=== PATIENT | male | born 2000 | race Caucasian/White ===

== ENCOUNTER 2024-05-12 17:36 | Emergency (ER) | payer MEDICAID ==
[~2024-05-12] VITALS: Ht 182.9 cm; Wt 72.7 kg
[2024-05-12] MEDS: LIDOcaine 1% W/epiNEPHrine 1:100,000 20ml vial SQ ONE (18:54)
[2024-05-12 19:13] LABS: BASOPHILS % (AUTO) 0.2 % (0-1); EOSINOPHILS % (AUTO) 0.1 % (0-6); HEMATOCRIT 46.1 % (42.0-52.0); HEMOGLOBIN 16.2 g/dl (14.0-17.9); LYMPHOCYTES # (AUTO) 1.7 X10'3 (1.1-4.8); LYMPHOCYTES % (AUTO) 12.5 % (21-51); MEAN CORPUSCULAR HGB CONC 35.2 g/dL (33.0-36.5); MEAN CORPUSCULAR VOLUME 88.1 FL (78-98); MONOCYTES % (AUTO) 7.3 % (2-12); NEUTROPHILS # (AUTO) 10.8 X10'3 (1.8-7.7); NEUTROPHILS % (AUTO) 79.9 % (42-75); PLATELET COUNT 287 X10'3 (140-440); RED BLOOD COUNT 5.23 X10'6 (4.70-6.10); RED CELL DISTRIBUTION WIDTH 13.6 % (11.5-14.5); WHITE BLOOD COUNT 13.5 X10'3 (4.5-11.0)
[2024-05-12 19:26] LABS: ANION GAP 15 (8-16); BLOOD UREA NITROGEN 7 MG/DL (7-18); BUN/CREATININE RATIO 9.3 (10.0-20.0); CALCIUM 9.4 MG/DL (8.5-10.1); CHLORIDE 99 MMOL/L (99-107); CREATININE 0.75 MG/DL (0.60-1.10); ETHANOL 15 MG/DL (<10); GLUCOSE 79 MG/DL (70-104); POTASSIUM 3.7 MMOL/L (3.5-5.1); SODIUM 139 MMOL/L (135-145); TOTAL CARBON DIOXIDE 24.8 MMOL/L (24-32); eCRCL 159 ML/MIN; eGFR > 90 ML/MIN
[2024-05-12] MEDS: bacitracin ointment unit dose packet TP ONE (21:28)
[2024-05-12 22:03] LABS: BILIRUBIN,URINE SMALL (Neg); CLARITY,URINE CLEAR (Clear); COLOR,URINE YELLOW (Yellow); GLUCOSE, URINE NEGATIVE (Neg); KETONES,URINE >=80 mg/dl (Neg); LEUKOCYTE ESTERASE ,URINE NEGATIVE (Neg); NITRITES, URINE NEGATIVE (Neg); OCCULT BLOOD,URINE SMALL (Neg); PROTEIN,URINE NEGATIVE (Neg); UROBILINOGEN,URINE 0.2 E.U/dL (0.2-1.0)
[2024-05-12 22:08] LABS: UA COLLECTION TYPE CLN CATCH MIDSTREAM
[2024-05-12 22:09] LABS: BACTERIA,URINE FEW /HPF (Neg); MUCUS STRANDS MODERATE /LPF (Neg); RBC,URINE 0-2 /HPF (0-2); SQUAMOUS EPITHELIAL CELL,UR FEW /LPF (FEW); WBC,URINE 0-4 /HPF (0-4)
[2024-05-12 22:28] LABS: URINE AMPHETAMINE SCREEN POSITIVE (Neg); URINE BARBITUATE SCREEN NEGATIVE (Neg); URINE BENZODIAZEPINES SCREEN NEGATIVE (Neg); URINE CANNABINOID SCREEN POSITIVE (Neg); URINE COCAINE SCREEN NEGATIVE (Neg); URINE METHADONE SCREEN NEGATIVE (Neg); URINE OPIATE SCREEN NEGATIVE (Neg); URINE PHENCYCLIDINE SCREEN NEGATIVE (Neg)
[2024-05-12] MEDS ORDERED: diazepam 5mg tablet PO PRN (23:45)
[2024-05-13] MEDS: diazepam 5mg tablet PO ONE (00:10)
[2024-05-13] MEDS: acetaminophen 325mg tablet PO PRN (00:10)
[2024-05-13] MEDS: traMADol 50MG tablet PO PRN (00:11)
[2024-05-13 05:59] VITALS: BP 144/94; PULSE 104; RESP 18; O2SAT 98
[2024-05-13 11:58] VITALS: TEMP 97.8
== END 2024-05-13 12:01 | disposition home or self-care (01) ==
LOC: ER 17:38
DX: S51.812A Laceration without foreign body of left forearm, initial encounter (principal); F43.20 Adjustment disorder, unspecified; R00.0 Tachycardia, unspecified; I10 Essential (primary) hypertension; X78.8XXA Intentional self-harm by other sharp object, initial encounter; Y93.89 Activity, other specified; Y92.89 Other specified places as the place of occurrence of the external cause; Y99.8 Other external cause status
CPT/HCPCS: 12052; 36415; 73090; 80048; 80305; 80320; 81001; 85025; 99284; J7030; A6258; A6446; A6449

== ENCOUNTER 2024-05-29 12:22 | Emergency (ER) | payer MEDICAID | END 2024-05-29 12:33 | disposition left against medical advice (07) | LOC: ER 12:22 | DX: Z48.01 Encounter for change or removal of surgical wound dressing (principal); Z53.21 Procedure and treatment not carried out due to patient leaving prior to being seen by health care provider ==

== ENCOUNTER 2024-11-06 18:43 | Emergency (ER) | payer MEDICAID ==
[~2024-11-06] VITALS: Ht 182.9 cm; Wt 68.2 kg
[2024-11-06 18:56] VITALS: BP 133/85; PULSE 87; RESP 16; O2SAT 98
[2024-11-06] MEDS ORDERED: SULF1TAB49 PO (19:13)
--- NOTE | 2024-11-06 19:13 | Physician Documentation ---
History of Present Illness ~ General Chief Complaint: See Chief Complaint Stated Complaint: CAT SCRATCHES Time Seen by MD: 19:07 Primary Medical Doctor: None History of Present Illness Initial Comments This is a pleasant 24-year-old previously healthy gentleman who comes in for evaluation of potential injuries sustained as a result of a cat scratch. He ye sterday he played with the sick cat, and the cat scratched him on his right hand. He also has a additional scratches with some surrounding erythema from [place] on [place]. No other complaints. No concern for tobacco, alcohol or illicit substances use at this time. Medication Reconciliation Allergies: Coded Allergies: No Known Allergies (Unverified , 05/12/24) Review of Systems ROS 10 point review of systems was performed and unless noted above in HPI is negative for acute process/complaint. Physical Exam Physical Exam Vital Signs: Temperature: 98.8, Heart Rate: 87, Respiratory Rate: 16, BP: 133/85, Pulse Oximetry: 98, Weight: 68.180 Oxygen Flow Rate: 0 Physical Exam Physical examination: GENERAL: Awake, alert, oriented, GCS 15, no apparent distress, non-toxic appearing, answers questions, follows commands appropriately. HEENT: Atraumatic, normocephalic, pupils equal, extraocular muscles intact Active gross movements, sclerae anicteric, mucus membranes moist, no stridor. NECK: Midline, no JVD CARDIOVASCULAR: Good skin perfusion without evidence of pallor, mottling. PULMONARY: Nonlabored, symmetric chest rise, no audible wheezing, no accessory muscle use, no respiratory distress, speaking in full sentences. GASTROINTESTINAL: Not distended. NEUROLOGIC: Lucid with normal mental status. Normal facial symmetry. Moves all extremities symmetrically and with purpose. No truncal ataxia. Speech is fluid without evidence of dysarthria or aphasia, no focal deficits appreciated. EXTREMITIES: Acute deformities Skin: warm, dry PSYCHIATRIC: Normal affect, normal insight, normal concentration. Focused exam: [] Multiple scratches and abrasions to bilateral hands, some surrounding it with the erythema. The cat scratch itself has mild erythema surrounding it, no purulence. Full range of motion. Neurovascularly intact distal in the right hand. Progress Results/Orders Results/Orders Vital Signs 11/06/24 18:56 Temp 98.8 Pulse 87 Resp 16 B/P (MAP) 133/85 Pulse Ox 98 O2 Flow Rate 0 Medical Decision Making Findings Facility Status: ED Holds, RME process The plan was discussed with the patient, who demonstrates clear understanding of the plan and is in agreement with the plan unless otherwise noted in the chart. All questions have been answered, all concerns were addressed unless otherwise documented. I was available throughout their ED stay for frequent reassessment and questions. Differential Diagnoses (considered and possible or likely): [Cellulitis, cat scratch disease, less likely fresh water pathogen infection, no evidence of abscess, unlikely to represent osteomyelitis or infected joint] ??Differential Diagnoses (considered and unlikely, not requiring evaluation currently): [See above] MDM Data Please see [facility] for the following: Independent Historians and external Records Review. Historian: [Patient] Independent Historians: ?[Non] Medication Management: [Reviewed medication list] Social History and determinants: [Reviewed] Please see the body of the note for the following: Any independent interpretations of ECG, imaging studies. All vitals signs/haemodynamics, ordered tests were independently reviewed and interpreted by myself. Nursing triage complaint and vitals reviewed, additional nursing notes were reviewed as available and I agree unless otherwise noted or documented in contradiction in the chart Vital Signs: Independently reviewed Labs: Independently interpreted Imaging: Independently interpreted Old Medical Records: Independently reviewed, see [facility] for relevant summary and information Additionally notably showing: [Hemodynamically stable] Tests considered but not ordered include: [Hematologic workup and imaging has been considered but does not appear to be necessary given clinical nature of diagnosis] Social Determinants of Health Impact: Patient was evaluated in [facility] [place] access to healthcare due to below par ratio of patient to medical providers. [] Comorbid Conditions Impacting Present Evaluation and Care/Treatment: [None] Management Discussions with other Healthcare Providers: [Non] Treatment and Disposition Medication Management (Given or considered): [Non]. See EMR for details Consideration for Hospitalization/Escalation/Deescalation of Care: Admission for observation has been considered, [however the patient is able to tolerate p.o., their symptoms are controlled, they are able to rely on oral medications, and their chief complaint/diagnosis can be managed on outpatient basis.] ?ED Course:?[Unlikely to represent a rabies exposure as the cat did not bite him. The gentleman is very specific that there has been no bite. Just scratching.] ?Shared decision making:?[Patient is hemodynamically stable for discharge home with follow with their primary care provider. [ ] Specific and cautious return precautions provided and discussed with full understanding. Any incidental findings were also discussed and follow up recommendations given. [] All questions answered. Patient/family were able to verbalize back return preca utions. Patient/family agree to plan. Copies of imaging and laboratory studies were provided.] Code status:?FULL Please see the full Electronic Medical Record for full details of nursing documentation, medications list, other records of complete past medical history and conditions, vital signs, laboratory studies, and any radiologic study interpretations by radiologists. Portions of this note were completed using [employer] dictation software and as a result there may exist minor errors in spelling. I have reviewed elements of past family and social history and agree as included in note. Departure Disposition: 01 HOME / SELF CARE / HOMELESS Impression: Primary Impression: Cat scratch Additional Impression: Cellulitis Condition: Stable Referrals: NO PRIMARY CARE PROVIDER (PCP) Prescriptions Sulfamethoxazole/Trimethoprim (Bactrim Ds Tablet) 800 Mg-160 Mg Tablet 1 TAB PO Q12H for 7 Days, #14 TAB Prov: JUAN DANIEL MEJIA DO 11/06/24 Education Educated: Patient Educated regarding: diagnosis, treatment, prognosis, need for follow up Signature Scribe Signature: No scribe Attestation: This note accurately reflects clinical decisions, work performed by myself, DO ROBERTO Anders NICHOLAS M DO Nov 06, 2024 19:13
[2024-11-06 19:17] VITALS: TEMP 98.8
== END 2024-11-06 19:18 | disposition home or self-care (01) ==
LOC: ER 18:43
DX: S60.511A Abrasion of right hand, initial encounter (principal); L03.113 Cellulitis of right upper limb; W55.03XA Scratched by cat, initial encounter; Y93.89 Activity, other specified; Y92.89 Other specified places as the place of occurrence of the external cause; Y99.8 Other external cause status
CPT/HCPCS: 99283

== ENCOUNTER 2024-12-25 22:22 | Emergency (ER) | payer OTHER ==
[~2024-12-25] VITALS: Ht 195.6 cm; Wt 65.2 kg
[2024-12-25 22:28] VITALS: BP 148/93; PULSE 124; RESP 16; TEMP 98.6; O2SAT 96
== END 2024-12-26 00:27 | disposition left against medical advice (07) ==
LOC: ER 22:22
DX: Z00.00 Encounter for general adult medical examination without abnormal findings (principal); Z53.21 Procedure and treatment not carried out due to patient leaving prior to being seen by health care provider; Y04.0XXA Assault by unarmed brawl or fight, initial encounter; Y93.89 Activity, other specified; Y92.89 Other specified places as the place of occurrence of the external cause; Y99.8 Other external cause status